=== PATIENT | female | born 1995 | race Caucasian/White ===

== ENCOUNTER 2025-05-29 06:14 | Inpatient (IN) | payer OTHER, SELFPAY ==
[2025-05-29 06:28] VITALS: BP 147/96; BMI 30.4
[2025-05-29 07:11] LABS: Hematocrit 34.4 % (37.0-47.0); Hemoglobin 12.0 g/dL (12.0-16.0); Mean Corp Hgb Conc. 34.9 g/dL (33.0-37.0); Mean Corpuscular Volume 90.3 fL (81.0-99.0); Nucleated Red Blood Cells % 0 %; Platelet Count 213 10^3/uL (130-400); Red Cell Dist. Width 11.9 % (11.5-14.5)
[2025-05-29] MEDS: PENICILLIN 110 UNITS IV (07:25)
[2025-05-29] MEDS: LR 1000 IV ×3 (07:25→18:26)
[2025-05-29 08:19] LABS: ALT (SGPT) 15 U/L (0-35); AST (SGOT) 20 U/L (14-36); Albumin 3.7 g/dl (3.5-5.0); Alkaline Phosphatase 177 U/L (38-126); Blood Urea Nitrogen 8 mg/dl (7-17); Calcium 8.9 mg/dl (8.4-10.2); Carbon Dioxide 22 mmol/L (22-30); Chloride 107 mmol/L (98-107); Estimated Creatinine Clearance > 125 ml/min; Glucose 82 mg/dl (70-99); Potassium 4.1 mmol/L (3.5-5.1); Sodium 135 mmol/L (135-145); Total Protein 6.6 g/dl (6.3-8.2); eGFR > 60.00
[2025-05-29] MEDS: CELESTONE SOLUSPAN 2 MG IM (08:59)
[2025-05-29] MEDS: PITOCIN 30 UNITS/NSS 500 ML IV (10:31)
[2025-05-29] MEDS: PENICILLIN 55 UNITS IV ×3 (13:01→21:01)
--- NOTE | 2025-05-29 13:47 | CON.NEO ---
Consultation
-
Date/Time Consultation Requested: 05/29/2025
Date/Time Consultation Performed: 05/29/2025
Requesting Provider: Dr Cobian
Performing Provider: Rony
Reason for Consultation: labor
Consultation - Neonatology
Maternal Labs
Blood Type: B Positive
Antibody Screen: Negative
RPR: Nonreactive
Rubella: Immune
Hep B S Ag: Negative
Hep C: Negative
HIV: Nonreactive
Group B Strep: Unknown
Chlamydia/GC: Negative
Consult
Mother presented with ROM at 36+4 weeks gestation.
Uncomplicated .
consult to provide family with information regarding late infants and their care.
Points discussed at consult:
- Management at delivery including the possibility of CPAP/intubation/surfactant discussed. As infant is greater than 36 weeks, unlikely to require support.
- Respiratory: RDS possibility with possibility of worsening for 24-48 hrs, management including CPAP/surfactant/ventilator support may be required
- Nutrition: Hypoglycemia, need for IV fluids, gradual feed advance, Gavage feeding, importance of colostrum feeding, initiation of expression of colostrum within 3-4 hours, availability of donor milk, safety fo donor milk etc. were discussed.
Mother plans on . She is aware that we will be monitoring glucose and infant may need supplementation.
- CVS: possibility of PDA not discussed in detail at this time
- Jaundice possibility and need for phototherapy discussed
- Family Centered Care: Discussed FCC with emphasis on parental participation during sign off and during management rounds and is encouraged.
Mom and Dad were given the opportunity to ask questions throughout and open invitation to call if any questions come as they absorb all the information given so far. Of note, father's mother is NICU nurse at [facility] [address].
Family is aware I am available for any further questions.
Face to Face Time
Total Rijh-rg-Rzxs Time (in Minutes): 30
[2025-05-30] MEDS: SUBLIMAZE 100 MCG EPIDURAL (00:19)
[2025-05-30] MEDS: FENTANYL/BUPIVACAINE 100 EPIDURAL ×2 (00:19→08:46)
[2025-05-30] MEDS: LR 1000 IV ×2 (00:44→10:07)
[2025-05-30] MEDS: PENICILLIN 55 UNITS IV ×3 (00:56→08:58)
[2025-05-30] MEDS: CELESTONE SOLUSPAN 2 MG IM (08:59)
[2025-05-30] MEDS: PITOCIN 30 UNITS/NSS 500 ML IV (13:17)
[2025-05-30] MEDS: PENICILLIN IV (13:35)
[2025-05-30] MEDS: COLACE 100 MG PO (20:58)
[2025-05-30] MEDS: MOTRIN 600 MG PO (21:53)
[2025-05-31] MEDS: MOTRIN 600 MG PO (04:59)
[2025-05-31 05:02] LABS: Hematocrit 30.1 % (37.0-47.0); Hemoglobin 10.7 g/dL (12.0-16.0)
[2025-05-31] MEDS: COLACE 100 MG PO ×2 (09:10→20:09)
[2025-05-31] MEDS: PRENATAL PLUS 1 TABLET PO (09:10)
[2025-06-01] MEDS: COLACE 100 MG PO (09:04)
[2025-06-01] MEDS: PRENATAL PLUS 1 TABLET PO (09:04)
[2025-06-01 11:06] LABS: Syphilis/T. pallidum Ab Reflex Negative (Negative)
== END 2025-06-01 13:12 | disposition home or self-care (01) | DRG 805 ==
LOC: LDRP 06:14
PROVIDERS: Obstetrics & Gynecology; ADMITTING PHYSICIAN Student in an Organized Health Care Education/Training Program
PROC: 10E0XZZ Delivery of Products of Conception, External Approach (ICD-10-PCS; 2025-05-30)
PROC: 0HQ9XZZ Repair Perineum Skin, External Approach (ICD-10-PCS; 2025-05-30)
DX: O42.013 Preterm premature rupture of membranes, onset of labor within 24 hours of rupture, third trimester (principal); O60.14X0 Preterm labor third trimester with preterm delivery third trimester, not applicable or unspecified; Z37.0 Single live birth; Z3A.36 36 weeks gestation of pregnancy; O70.0 First degree perineal laceration during delivery; O69.81X0 Labor and delivery complicated by cord around neck, without compression, not applicable or unspecified
CPT/HCPCS: 80053; 82570; 84156; 85014; 85018; 85025; 86780; 86850; 86900; 86901; 87070; 88307